=== PATIENT | female | born 1935 | race Caucasian/White ===

== ENCOUNTER 2016-09-05 11:00 | Outpatient (RCR) ==
--- NOTE | 2016-08-14 09:11 | RS.OPPTEV2 ---
Date of Note: 08/12/16 Visit #: 1 Date of Evaluation: 08/12/16 Payer Source: MEDICARE Date of Onset/Injury/Change in Status: 05/11/16 Treatment Diagnosis: Ataxia ,Gait abnormality, decreased balance History of Condition/Mechanism of Injury:: Patient reports difficulty with walking because of having tremors. States her legs have felt progressively weaker. Prior Level of Function.....Patient was independent with: ADL's, Self Care, Ambulation/Mobility, Community Integration/Access Functional Limitations: ADL's, Carrying, Standing, Bending, Squatting, Ambulation, Community Access/Integration Current Subjective/complaints:: Patient reports being unsteady when she walks. States she has tremors, which are worse on some days than others. States she uses a cane when walking out to get her mail or other long distances. States she should probably use it anytime she walks. States she is very cautious when she walks, because she is afraid of falling. She denies dizziness. Also denies tingling or numbness in the LE's. Reports difficulty at times getting out of bed or out of a chair. States she cannot stand up from a sitting position without using her arms. States her knees are beginning to hurt because she puts so much pressure on them when she goes to stand up. Reports in caodaism, she has to pull herself up by holding onto the pew in front of her. Medical History Medical History: Hypertension, Arthritis Medical History Comments:: Tremors Surgical History: Lumbar Spine Smoking Status: Never smoker Hx Home Medications: Zestril, prilosec, Toprol, Topamax, Mysoline, Imdur Patient's Goals: Her goal is to gain improved balance and strength in her legs so she will be less likely to fall when walking. Pain Assessment - Pain Description Pain Location: knee pain bilaterally Current Pain Intensity: mild Functional Outcome Measure Tinetti: 15 (15=46.5% impairment) - G Codes & Severity Modifier G Codes & Modifier: Mobility current CK. Mobility goal CI Source of G Code score: Tinetti Assessment Observation - Observation Inspection: Patient presents to department ambulating alone, without an assistive device. Posture: Forward Head, Rounded Shoulders, Decreased Lumbar Lordosis Gait - Gait Pattern Gait Comments: Patient ambulates without an assistive device. She demonstrates a short stride, and very narrow base of support. Stride length is symmetrical. She demonstrates decreased bilateral knee and hip flexion during swing phase. With distractions, patient's gait speed slows down and she has loss of balance with head turning. General Range of Motion: Bilateral LE AROM is WFL's. Muscle Strength: Hip strength generally 4-/5. Quads 4/5, HS 4+/5, ankles 4/5. Sensation - Sensation Right Lower Extremity: Intact/Normal Left Lower Extremity: Intact/Normal Balance - Sitting Balance Static Sitting Balance: Good Dynamic Sitting Balance: Good - Standing Balance Static Standing Balance: Fair (+) Dynamic Standing Balance: Fair - Comments Balance Assessment Comments: Demonstrates decreased balance reactions when center of gravity is displaced posteriorly in standing. Also stepping backward from neutral standing position causes her to have a loss of balance. Demonstrates no sway or loss of balance with eyes closed in standing. Coordination - Tests Bilateral Heel to Baker: Mild Deviation Toe Tapping: Mild Deviation (more difficulty with increased speed) Interventions - Exercise/Activities/Manual Therapy Exercises/Activities: NA Manual Therapy: NA HOME EXERCISE PROGRAM: None given at this time - Charges Total Direct Minutes: 55 mins Total Treatment Time: 55 mins Procedures billed for this date of service:: AUBREE medium complexity Assessment Assessment: Patient presents to therapy with a diagnosis of ataxia. She demonstrates to be at a high risk for falls per Tinetti Assessment. She presents with general weakness in the LE's and decreased dynamic standing balance. She demonstrates potential to benefit from strengthening and balance exercises and activities to improve her overall safety and decrease her risk for falls. Rehab Potential: Good Short Term Goals Goal #1: Patient independent in basic HEP. Goal to be met by: 08/27/16 Goal #2: Pt to consistently demonstrate a good base of support with ambulation. Goal to be met by: 08/27/16 Goal #3: Dynamic standing balance improved to Fair +. Goal to be met by: 08/27/16 Goal #4: Bilateral hip strength 4/5 throughout. Goal to be met by: 08/27/16 Custodial Goals Goal #1: Patient knows HEP and to cont. ex's to maintain level of function at D/ C. Goal to be met by: 09/22/16 Goal #2: Score on Tinetti Assessment improved to 21/28. Goal to be met by: 09/22/16 Goal #3: Patient to amb. with AAD with good safety community distances. Goal to be met by: 09/22/16 Goal #4: Pt to report improved confidence in balance and safety with mobility. Goal to be met by: 09/22/16 Plan - Treatment to be Provided Procedures: Therapeutic Exercises, Therapeutic Activity, Gait Training, Neuromuscular Rehab, Patient Education Modalities: No Modalities - Treatment Plan Frequency: 2-3 X week Duration: 4 weeks ORDER # VISITS AND/OR THROUGH DATE: 09/22/16 - Treatment Code (1) Gait abnormality Comments: R26.9 (2) Weakness of both lower extremities Comments: R29.8980 (3) Continuous tremor Comments: G25.2
--- NOTE | 2016-08-14 11:43 | RS.OPPTDN ---
Subjective Date of Note: 08/14/16 Visit #: 2 Date of Evaluation: 08/12/16 Payer Source: MEDICARE Treatment Diagnosis: Ataxia ,Gait abnormality, decreased balance Current Subjective/complaints:: Patient reports she want to get stronger and have better balance to increase her ability to walk and perform daily activities safely. Pain Assessment - Pain Description Pain Location: knee pain bilaterally Current Pain Intensity: mild Interventions - Exercise/Activities/Manual Therapy Exercises/Activities: [id number]. Mat exercise of SAQ 3# 2s/10reps and hook-lying LE lifts 3#, 2s/10reps. 1 1/2# for SLR 3s/10reps. Hip abd 10reps each. Isometric hip add 3s/10reps and isometric hip flexion 4s/5reps. Green theraband for ham curls and hip abduction, 2s/10reps each. All exercises performed bilaterally. In sitting, red theraband for ham curl and 3# for LAQ, 2s/10reps each. Alt hip flexion and wand for overhead shoulder flexion 2s/10reps each. NEURO 10mins Standing at hand rail with assist at gait belt patient performs marching and toe touches to erazo on wall. Side stepping, marching, and backwards walking with use of handrail and FLAME CUTTING MACHINE OPERATOR HELPER. Sit to stand multiple reps. Walked with patient to car, v.c. to increase step height and length. Also safety precautions for going down ramp. Total minutes of Exercise: EX 35mins, NEURO 10mins Manual Therapy: NA HOME EXERCISE PROGRAM: Isometric hip add, SLR, alt hip flexion. - Charges Total Direct Minutes: 45mins Total Treatment Time: 50mins Procedures billed for this date of service:: EX2, NEURO Assessment: Patient motivated to progress. She will need to gain strength and balance to perform her daily activities as she lives alone. Patient Education: Home Exercise Program, Home Safety, Activity Modification Patient demonstrates compliance with HEP?: Yes Short Term Goals Goal #1: Patient independent in basic HEP. Goal to be met by: 08/27/16 Progress towards Goal:: Progressing Goal #2: Pt to consistently demonstrate a good base of support with ambulation. Goal to be met by: 08/27/16 Progress towards Goal:: Progressing Goal #3: Dynamic standing balance improved to Fair +. Goal to be met by: 08/27/16 Goal #4: Bilateral hip strength 4/5 throughout. Goal to be met by: 08/27/16 Paper Machine Back Tender Goals Goal #1: Patient knows HEP and to cont. ex's to maintain level of function at D/ C. Goal to be met by: 09/22/16 Goal #2: Score on Tinetti Assessment improved to 21/28. Goal to be met by: 09/22/16 Goal #3: Patient to amb. with AAD with good safety community distances. Goal to be met by: 09/22/16 Goal #4: Pt to report improved confidence in balance and safety with mobility. Goal to be met by: 09/22/16 Plan PLAN OF CARE EXPIRES ON:: 09/22/16 ORDER # VISITS AND/OR THROUGH DATE: 09/22/16 PLAN: Continue Plan of Care (Continue and progress strengthening and balance for increased safety and functional activity level.)
--- NOTE | 2016-08-18 11:03 | RS.OPPTDN ---
Subjective Date of Note: 08/18/16 Visit #: 3 Date of Evaluation: 08/12/16 Payer Source: MEDICARE Treatment Diagnosis: Ataxia ,Gait abnormality, decreased balance Current Subjective/complaints:: Patient reports no new complaints. No recent falls. Pain Assessment - Pain Description Pain Location: knee pain bilaterally Current Pain Intensity: mild Interventions - Exercise/Activities/Manual Therapy Exercises/Activities: [id number]. Mat exercise of SAQ 3# 2s/10reps and hook-lying LE lifts 3#, 2s/10reps. 1 1/2# for SLR 3s/10reps. Hip abd 10reps each. Isometric hip add 3s/10reps and isometric hip flexion 4s/5reps. Green theraband for ham curls and hip abduction, 2s/10reps each. All exercises performed bilaterally. In sitting, red theraband for ham curl and 3# for LAQ, 2s/10reps each. Alt hip flexion and wand for overhead shoulder flexion 2s/10reps each. Standing at hand rail with assist at gait belt patient performs hip flexion, extension, abduction, and mini squats. Patient able to perform sit to stand without using arms after rocking for momentum. Manual Therapy: NA HOME EXERCISE PROGRAM: Isometric hip add, SLR, alt hip flexion. - Charges Total Direct Minutes: 36 mins Total Treatment Time: 36 mins Procedures billed for this date of service:: EX2 Assessment: Patient tolerates all exercises well. She is highly motivated to gain increased strength and safety with mobility. Short Term Goals Goal #1: Patient independent in basic HEP. Goal to be met by: 08/27/16 Progress towards Goal:: Progressing Goal #2: Pt to consistently demonstrate a good base of support with ambulation. Goal to be met by: 08/27/16 Progress towards Goal:: Progressing Goal #3: Dynamic standing balance improved to Fair +. Goal to be met by: 08/27/16 Goal #4: Bilateral hip strength 4/5 throughout. Goal to be met by: 08/27/16 Detention Goals Goal #1: Patient knows HEP and to cont. ex's to maintain level of function at D/ C. Goal to be met by: 09/22/16 Goal #2: Score on Tinetti Assessment improved to 21/28. Goal to be met by: 09/22/16 Goal #3: Patient to amb. with AAD with good safety community distances. Goal to be met by: 09/22/16 Goal #4: Pt to report improved confidence in balance and safety with mobility. Goal to be met by: 09/22/16 Plan PLAN OF CARE EXPIRES ON:: 09/22/16 ORDER # VISITS AND/OR THROUGH DATE: 09/22/16 PLAN: Continue Plan of Care
--- NOTE | 2016-08-20 14:15 | RS.OPPTDN ---
Subjective Date of Note: 08/20/16 Visit #: 4 Date of Evaluation: 08/12/16 Payer Source: MEDICARE Treatment Diagnosis: Ataxia ,Gait abnormality, decreased balance Current Subjective/complaints:: Patient reports she is pleased with her ability to perform sit to stand from average height surface without difficulty. Pain Assessment - Pain Description Pain Location: knee pain bilaterally Current Pain Intensity: mild Interventions - Exercise/Activities/Manual Therapy Exercises/Activities: [id number]. Mat exercise of SAQ 3# 2s/10reps and hook-lying LE lifts 3#, 2s/10reps. 1 1/2# for SLR 3s/10reps. Hip abd 10reps each. Isometric hip add 3s/10reps and isometric hip flexion 4s/5reps. Green theraband for ham curls and hip abduction, 2s/10reps each. Red theraband for ankle df, 2s/ 10reps each. All exercises performed bilaterally. In sitting, red theraband for ham curl and 3# for LAQ, 2s/10reps each. Red theraband for scapular retraction, 2s/10reps. Leg press 30#, 2s/15reps. Total minutes of Exercise: 35mins Manual Therapy: NA HOME EXERCISE PROGRAM: Isometric hip add, SLR, alt hip flexion. - Charges Total Direct Minutes: 35mins Total Treatment Time: 35mins Procedures billed for this date of service:: EX2 Assessment: Patient progressing with strength and with sit to stand transfers. Patient Education: Home Exercise Program, Home Safety Short Term Goals Goal #1: Patient independent in basic HEP. Goal to be met by: 08/27/16 Progress towards Goal:: Progressing Goal #2: Pt to consistently demonstrate a good base of support with ambulation. Goal to be met by: 08/27/16 Progress towards Goal:: Progressing Goal #3: Dynamic standing balance improved to Fair +. Goal to be met by: 08/27/16 Goal #4: Bilateral hip strength 4/5 throughout. Goal to be met by: 08/27/16 Security Controls Assessor Goals Goal #1: Patient knows HEP and to cont. ex's to maintain level of function at D/ C. Goal to be met by: 09/22/16 Goal #2: Score on Tinetti Assessment improved to 21/28. Goal to be met by: 09/22/16 Goal #3: Patient to amb. with AAD with good safety community distances. Goal to be met by: 09/22/16 Goal #4: Pt to report improved confidence in balance and safety with mobility. Goal to be met by: 09/22/16 Plan PLAN OF CARE EXPIRES ON:: 09/22/16 ORDER # VISITS AND/OR THROUGH DATE: 09/22/16 PLAN: Continue Plan of Care
--- NOTE | 2016-08-22 14:44 | RS.OPPTDN ---
Subjective Date of Note: 08/22/16 Visit #: 5 Date of Evaluation: 08/12/16 Payer Source: MEDICARE Treatment Diagnosis: Ataxia ,Gait abnormality, decreased balance Current Subjective/complaints:: Patient reports she is walking better and is doing better with sit to stand. Pain Assessment - Pain Description Pain Location: knee pain bilaterally Current Pain Intensity: mild Interventions - Exercise/Activities/Manual Therapy Exercises/Activities: [id number]. Mat exercise of SAQ 3# 2s/10reps and hook-lying LE lifts 3#, 2s/10reps. 1 1/2# for SLR 3s/10reps. Isometric hip add 3s/10reps and isometric hip flexion 4s/5reps. Green theraband for ham curls and hip abduction, 2s/10reps each. Red theraband for ankle df, 2s/10reps each. All exercises performed bilaterally. In sitting, red theraband for ham curl and 3# for LAQ, 2s/10reps each. Red theraband for scapular retraction, 2s/10reps. Standing at handrail, mini-squats, toe-ups, alt hip abd, and marching. Leg press 30#, 3s/20reps. Total minutes of Exercise: 40mins Manual Therapy: NA HOME EXERCISE PROGRAM: Isometric hip add, SLR, alt hip flexion. - Charges Total Direct Minutes: 40mins Total Treatment Time: 45mins Procedures billed for this date of service:: EX3 Assessment: Patient progressing with strength and ambulation which will improve her safety and functional activity level. Patient Education: Home Exercise Program, Home Safety, Activity Modification Patient demonstrates compliance with HEP?: Yes Short Term Goals Goal #1: Patient independent in basic HEP. Goal to be met by: 08/27/16 Progress towards Goal:: Progressing Goal #2: Pt to consistently demonstrate a good base of support with ambulation. Goal to be met by: 08/27/16 Progress towards Goal:: Progressing Goal #3: Dynamic standing balance improved to Fair +. Goal to be met by: 08/27/16 Progress towards Goal:: Progressing Goal #4: Bilateral hip strength 4/5 throughout. Goal to be met by: 08/27/16 Progress towards Goal:: Progressing Residential Goals Goal #1: Patient knows HEP and to cont. ex's to maintain level of function at D/ C. Goal to be met by: 09/22/16 Goal #2: Score on Tinetti Assessment improved to 21/28. Goal to be met by: 09/22/16 Goal #3: Patient to amb. with AAD with good safety community distances. Goal to be met by: 09/22/16 Progress towards goal: Progressing Goal #4: Pt to report improved confidence in balance and safety with mobility. Goal to be met by: 09/22/16 Progress towards goal: Progressing Plan PLAN OF CARE EXPIRES ON:: 09/22/16 ORDER # VISITS AND/OR THROUGH DATE: 09/22/16 PLAN: Continue Plan of Care
--- NOTE | 2016-08-26 15:20 | RS.OPPTDN ---
Subjective Date of Note: 08/26/16 Visit #: 6 Date of Evaluation: 08/12/16 Payer Source: MEDICARE Treatment Diagnosis: Ataxia ,Gait abnormality, decreased balance Current Subjective/complaints:: Patient reports family has noticed she is walking better. States she is picking her feet up better. Pain Assessment - Pain Description Pain Location: knee pain bilaterally Current Pain Intensity: mild Interventions - Exercise/Activities/Manual Therapy Exercises/Activities: [id number]. Mat exercise of SAQ increased to 4# 2s/10reps and hook-lying LE lifts 4#, 2s/10reps. 2# for SLR 3s/10reps. Isometric hip add 3s/10reps and isometric hip flexion 4s/5reps. Green theraband for ham curls and hip abduction, 2s/10reps each. Increased to green theraband for ankle df, 2s/ 10reps each. Isometric trunk rotation, multiple reps. All exercises performed bilaterally. In sitting, green theraband and scapular retraction, 2s/10reps. Uni -lateral standing on medium resistance foam, 3x each LE. Standing at handrail, mini-squats, toe-ups, and marching. Leg press increased to 45#, 4s/15reps. Walked with patient down ramp to car in parking lot. Total minutes of Exercise: 40mins Manual Therapy: NA HOME EXERCISE PROGRAM: Isometric hip add, SLR, alt hip flexion. - Charges Total Direct Minutes: 40mins Total Treatment Time: 45mins Procedures billed for this date of service:: EX3 Assessment: Patient progressing well with strengthening and with walking. Short Term Goals Goal #1: Patient independent in basic HEP. Goal to be met by: 08/27/16 (100%) Progress towards Goal:: Met Goal #2: Pt to consistently demonstrate a good base of support with ambulation. Goal to be met by: 08/27/16 (50%) Progress towards Goal:: Progressing Goal #3: Dynamic standing balance improved to Fair +. Goal to be met by: 08/27/16 (75%) Progress towards Goal:: Progressing Goal #4: Bilateral hip strength 4/5 throughout. Goal to be met by: 08/27/16 Progress towards Goal:: Progressing Usp Goals Goal #1: Patient knows HEP and to cont. ex's to maintain level of function at D/ C. Goal to be met by: 09/22/16 Goal #2: Score on Tinetti Assessment improved to 21/28. Goal to be met by: 09/22/16 Goal #3: Patient to amb. with AAD with good safety community distances. Goal to be met by: 09/22/16 Progress towards goal: Progressing Goal #4: Pt to report improved confidence in balance and safety with mobility. Goal to be met by: 09/22/16 Progress towards goal: Progressing Plan PLAN OF CARE EXPIRES ON:: 09/22/16 ORDER # VISITS AND/OR THROUGH DATE: 09/22/16 PLAN: Continue Plan of Care (Progress with strengthening to increase safety with ambulation and increase functional activity level.)
--- NOTE | 2016-08-27 15:18 | RS.OPPTDN ---
Subjective Date of Note: 08/27/16 Visit #: 7 Date of Evaluation: 08/12/16 Payer Source: MEDICARE Treatment Diagnosis: Ataxia ,Gait abnormality, decreased balance Current Subjective/complaints:: Patient reports conitnued improvement in LE strength and safe ambulation. Pain Assessment - Pain Description Pain Location: knee pain bilaterally Current Pain Intensity: mild Interventions - Exercise/Activities/Manual Therapy Exercises/Activities: [id number]. Mat exercise of SAQ 4# 2s/10reps and hook-lying LE lifts 4#, 2s/10reps. 2# for SLR 3s/10reps. Isometric hip add 3s/10reps and isometric hip flexion 4s/5reps. Green theraband for ham curls and hip abduction , 3s/10reps each. Green theraband for ankle df, 2s/10reps each. Isometric trunk rotation, multiple reps. All exercises performed bilaterally. In sitting, green theraband for scapular retraction, 2s/10reps and ham curl 3s/10reps. Uni- lateral standing on medium resistance foam, 3x each LE. Standing at handrail, mini-squats, toe-ups, marching and alt hip abduction, 10reps each. Leg press 45# , 3s/30reps. Walked again with patient down ramp to car in parking lot. Total minutes of Exercise: 42mins Manual Therapy: NA HOME EXERCISE PROGRAM: Isometric hip add, SLR, alt hip flexion. - Charges Total Direct Minutes: 42mins Total Treatment Time: 45mins Procedures billed for this date of service:: EX3 Assessment: Patient progressing well with exercise. Patient Education: Home Exercise Program, Home Safety, Activity Modification Comments: Patient given copy of standing exercises for HEP. Patient demonstrates compliance with HEP?: Yes Short Term Goals Goal #1: Patient independent in basic HEP. Goal to be met by: 08/27/16 (100%) Progress towards Goal:: Met Goal #2: Pt to consistently demonstrate a good base of support with ambulation. Goal to be met by: 08/27/16 (50%) Progress towards Goal:: Progressing Goal #3: Dynamic standing balance improved to Fair +. Goal to be met by: 08/27/16 (75%) Progress towards Goal:: Progressing Goal #4: Bilateral hip strength 4/5 throughout. Goal to be met by: 08/27/16 Progress towards Goal:: Progressing Senior Infrastructure Engineer Goals Goal #1: Patient knows HEP and to cont. ex's to maintain level of function at D/ C. Goal to be met by: 09/22/16 Goal #2: Score on Tinetti Assessment improved to 21/28. Goal to be met by: 09/22/16 Goal #3: Patient to amb. with AAD with good safety community distances. Goal to be met by: 09/22/16 Progress towards goal: Progressing Goal #4: Pt to report improved confidence in balance and safety with mobility. Goal to be met by: 09/22/16 Progress towards goal: Progressing Plan PLAN OF CARE EXPIRES ON:: 09/22/16 ORDER # VISITS AND/OR THROUGH DATE: 09/22/16 PLAN: Continue Plan of Care
--- NOTE | 2016-08-29 12:10 | RS.OPPTDN ---
Subjective Date of Note: 08/29/16 Visit #: 8 Date of Evaluation: 08/12/16 Payer Source: MEDICARE Treatment Diagnosis: Ataxia ,Gait abnormality, decreased balance Current Subjective/complaints:: Patient reports she is stronger each day and feels more secure with light daily activities in her home. Paitnet states she needs to be able to do more moderate daily activities and needs a stronger gait because she lives alone. Pain Assessment - Pain Description Pain Location: knee pain bilaterally Current Pain Intensity: mild Interventions - Exercise/Activities/Manual Therapy Exercises/Activities: [id number]. Mat exercise of SAQ 4# 2s/10reps and hook-lying LE lifts 4#, 2s/10reps. 2# for SLR 3s/10reps. Isometric hip add 3s/10reps and isometric hip flexion 4s/5reps. Green theraband for ham curls and hip abduction , 3s/10reps each. Green theraband for ankle df, 2s/10reps each. Isometric trunk rotation, multiple reps. All exercises performed bilaterally. In sitting, red theraband for scapular retraction, 3s/10reps and ham curl 3s/10reps. Leg press increased to 60#, 3s/20reps. Patient assisted to car in parking lot with SBA to CGA. Total minutes of Exercise: 35mins Manual Therapy: NA HOME EXERCISE PROGRAM: Isometric hip add, SLR, alt hip flexion. Standing at kitchen counter for toe-ups, mini-squats, marching, and alt hip abd. - Charges Total Direct Minutes: 35mins Total Treatment Time: 40mins Procedures billed for this date of service:: EX2 Assessment: Patient continues to report progress with safe, functional mobility. She needs to progress to be able to perform more moderate daily activities and have a consistently safe gait pattern. Patient Education: Home Exercise Program, Home Safety Patient demonstrates compliance with HEP?: Yes Short Term Goals Goal #1: Patient independent in basic HEP. Goal to be met by: 08/27/16 (100%) Progress towards Goal:: Met Goal #2: Pt to consistently demonstrate a good base of support with ambulation. Goal to be met by: 08/27/16 (50%) Progress towards Goal:: Progressing Goal #3: Dynamic standing balance improved to Fair +. Goal to be met by: 08/27/16 (75%) Progress towards Goal:: Progressing Goal #4: Bilateral hip strength 4/5 throughout. Goal to be met by: 08/27/16 Progress towards Goal:: Progressing Retirement Goals Goal #1: Patient knows HEP and to cont. ex's to maintain level of function at D/ C. Goal to be met by: 09/22/16 Goal #2: Score on Tinetti Assessment improved to 21/28. Goal to be met by: 09/22/16 Goal #3: Patient to amb. with AAD with good safety community distances. Goal to be met by: 09/22/16 Progress towards goal: Progressing Goal #4: Pt to report improved confidence in balance and safety with mobility. Goal to be met by: 09/22/16 Progress towards goal: Progressing Plan PLAN OF CARE EXPIRES ON:: 09/22/16 ORDER # VISITS AND/OR THROUGH DATE: 09/22/16 PLAN: Continue Plan of Care
--- NOTE | 2016-09-01 13:23 | RS.OPPTDN ---
Subjective Date of Note: 09/01/16 Visit #: 9 Date of Evaluation: 08/12/16 Payer Source: MEDICARE Treatment Diagnosis: Ataxia ,Gait abnormality, decreased balance Current Subjective/complaints:: Patient reports doing better with walking short distances in community. States she is working on her HEP. Pain Assessment - Pain Description Pain Location: knee pain bilaterally Current Pain Intensity: mild Interventions - Exercise/Activities/Manual Therapy Exercises/Activities: [id number]. Mat exercise of SAQ 4# 2s/10reps and hook-lying LE lifts 4#, 2s/10reps. 2# for SLR 3s/10reps. Isometric hip add 3s/10reps and isometric hip flexion 4s/5reps. Green theraband for ham curls and hip abduction , 3s/10reps each. Isometric trunk rotation, multiple reps. All exercises performed bilaterally. In sitting, red theraband for scapular retraction, 3s/ 10reps and ham curl 3s/10reps. Standing at handrail for toe-ups, mini-squats, marching, and alt hip abduction. Leg press 60#, 3s/20reps. Patient assisted to car in parking lot with SBA to CGA. Total minutes of Exercise: 45mins Manual Therapy: NA HOME EXERCISE PROGRAM: Isometric hip add, SLR, alt hip flexion. Standing at kitchen counter for toe-ups, mini-squats, marching, and alt hip abd. - Charges Total Direct Minutes: 45mins Total Treatment Time: 45mins Procedures billed for this date of service:: EX3 Assessment: Patient reporting progress with functional ambulation short distances in the community. Patient Education: Home Exercise Program, Home Safety, Activity Modification Patient demonstrates compliance with HEP?: Yes Short Term Goals Goal #1: Patient independent in basic HEP. Goal to be met by: 08/27/16 (100%) Progress towards Goal:: Met Goal #2: Pt to consistently demonstrate a good base of support with ambulation. Goal to be met by: 08/27/16 (50%) Progress towards Goal:: Progressing Goal #3: Dynamic standing balance improved to Fair +. Goal to be met by: 08/27/16 (75%) Progress towards Goal:: Progressing Goal #4: Bilateral hip strength 4/5 throughout. Goal to be met by: 08/27/16 Progress towards Goal:: Progressing Organizational Research Consultant Goals Goal #1: Patient knows HEP and to cont. ex's to maintain level of function at D/ C. Goal to be met by: 09/22/16 Goal #2: Score on Tinetti Assessment improved to 21/28. Goal to be met by: 09/22/16 Goal #3: Patient to amb. with AAD with good safety community distances. Goal to be met by: 09/22/16 Progress towards goal: Progressing Goal #4: Pt to report improved confidence in balance and safety with mobility. Goal to be met by: 09/22/16 Progress towards goal: Progressing Plan PLAN OF CARE EXPIRES ON:: 09/22/16 ORDER # VISITS AND/OR THROUGH DATE: 09/22/16 PLAN: Continue Plan of Care (Continue strengthening and reassess FOM next session.)
--- NOTE | 2016-09-03 14:26 | RS.OPPTDN ---
Subjective Date of Note: 09/03/16 Visit #: 10 Date of Evaluation: 08/12/16 Payer Source: MEDICARE Treatment Diagnosis: Ataxia ,Gait abnormality, decreased balance Current Subjective/complaints:: Reports she is pleased with her progress. States her gait around her home has improved. States she would like to be able to get back to walking outside for exercise as before. Pain Assessment - Pain Description Pain Location: knee pain bilaterally Current Pain Intensity: mild Interventions - Exercise/Activities/Manual Therapy Exercises/Activities: [id number]. Mat exercise of SAQ 4# 2s/10reps and hook-lying LE lifts 4#, 2s/10reps. 2# for SLR 3s/10reps. Isometric hip add 3s/10reps and isometric hip flexion 4s/5reps. Green theraband for ham curls and hip abduction , 3s/10reps each. Isometric trunk rotation, multiple reps. All exercises performed bilaterally. In sitting, red theraband for scapular retraction, 3s/ 10reps and ham curl 3s/10reps. Standing at handrail for toe-ups, mini-squats, marching, and alt hip abduction. Uni-lateral standing alt sides, multiple reps. Leg press in5#creased to #, 3s/20reps. Ended with stationary bike x3mins. Total minutes of Exercise: 45mins Manual Therapy: NA HOME EXERCISE PROGRAM: Isometric hip add, SLR, alt hip flexion. Standing at kitchen counter for toe-ups, mini-squats, marching, and alt hip abd. - Objective Findings Observations,measurements,etc.: Demos independent sit to stand without use of UE 's. Demos improvement in gait pattern. Tinetti score improved to 19/28 or 32.1% deficit (was 15/28 or 46.5% on Eval). - Charges Total Direct Minutes: 45mins Total Treatment Time: 50mins Procedures billed for this date of service:: EX3 Assessment: Patient progressing with strengtheing and demos improvement on Tinetti assessment. Patient will benefit from completing sessions of POC to improve strength, balance and independence with functional activities. Patient Education: Home Exercise Program, Home Safety, Activity Modification Patient demonstrates compliance with HEP?: Yes Short Term Goals Goal #1: Patient independent in basic HEP. Goal to be met by: 08/27/16 (100%) Progress towards Goal:: Met Goal #2: Pt to consistently demonstrate a good base of support with ambulation. Goal to be met by: 08/27/16 (80%) Progress towards Goal:: Progressing Goal #3: Dynamic standing balance improved to Fair +. Goal to be met by: 08/27/16 (100%) Progress towards Goal:: Met Goal #4: Bilateral hip strength 4/5 throughout. Goal to be met by: 08/27/16 (100%) Progress towards Goal:: Met Legal Billing Coordinator Goals Goal #1: Patient knows HEP and to cont. ex's to maintain level of function at D/ C. Goal to be met by: 09/22/16 Progress towards goal: Progressing Goal #2: Score on Tinetti Assessment improved to 21/28. Goal to be met by: 09/22/16 (70%) Progress towards goal: Progressing Goal #3: Patient to amb. with AAD with good safety community distances. Goal to be met by: 09/22/16 (50%) Progress towards goal: Progressing Goal #4: Pt to report improved confidence in balance and safety with mobility. Goal to be met by: 09/22/16 (50%) Progress towards goal: Progressing Plan PLAN OF CARE EXPIRES ON:: 09/22/16 ORDER # VISITS AND/OR THROUGH DATE: 09/22/16 PLAN: Continue Plan of Care
--- NOTE | 2016-09-03 15:42 | RS.PTSUM ---
Progress Note/Summary Date of Note: 09/03/16 Date of Evaluation: 08/12/16 Number of Visits: 10 Reporting Period for this Progress Note: 08/12/16 through 09/03/16 Current Complaints/Gains: Patient reports improved balance and strength since starting therapy. Objective Measurements/Presentation: Ms. Dutta demonstrates [place] with sit to stand without use of UE to push from chair. Demonstrates improved foot clearance and gait pattern. Did not demonstrate sway from path during today's session. G Codes: Mobility current CJ. Mobility goal CI Source of G Code Score: Tinetti Assessment =32%. Score at initial evaluation was 15/28 or 46.5 % impairment - Short Term Goals Goal #1: Patient independent in basic HEP. Goal to be met by: 08/27/16 (100%) Progress towards Goal:: Met Goal #2: Pt to consistently demonstrate a good base of support with ambulation. Goal to be met by: 08/27/16 (80%) Progress towards Goal:: Progressing Goal #3: Dynamic standing balance improved to Fair +. Goal to be met by: 08/27/16 (100%) Progress towards Goal:: Met Goal #4: Bilateral hip strength 4/5 throughout. Goal to be met by: 08/27/16 (100%) Progress towards Goal:: Met - Retirement Goals Goal #1: Patient knows HEP and to cont. ex's to maintain level of function at D/ C. Goal to be met by: 09/22/16 Progress towards goal: Progressing Goal #2: Score on Tinetti Assessment improved to 21/28. Goal to be met by: 09/22/16 (70%) Progress towards goal: Progressing Goal #3: Patient to amb. with AAD with good safety community distances. Goal to be met by: 09/22/16 (50%) Progress towards goal: Progressing Goal #4: Pt to report improved confidence in balance and safety with mobility. Goal to be met by: 09/22/16 (50%) Progress towards goal: Progressing - Assessment Assessment of Improvement/Progress: Patient exhibits improved ability with transfers and improved safety with ambulation. She demonstrates potential to benefit from one more week of therapy for progressed strengthening and safety instruction with mobility to reduce risk for falls. Summary: Patient has made progress towards goals., Patient demonstrates potential to gain increased function with therapy, Maximum potential has yet to be attained. - Plan Plan: Continue Plan of Care PLAN OF CARE EXPIRES ON:: 09/22/16 ORDER # VISITS AND/OR THROUGH DATE: 09/22/16
--- NOTE | 2016-09-05 12:00 | RS.OPPTDN ---
Subjective Date of Note: 09/05/16 Visit #: 11 Date of Evaluation: 08/12/16 Payer Source: MEDICARE Treatment Diagnosis: Ataxia ,Gait abnormality, decreased balance Current Subjective/complaints:: Patient reports she continues to increase community activities. Reports she is stronger and feels more secure when walking. Pain Assessment - Pain Description Pain Location: knee pain bilaterally Current Pain Intensity: mild Interventions - Exercise/Activities/Manual Therapy Exercises/Activities: [id number]. Mat exercise of SAQ 4# 2s/10reps and hook-lying LE lifts 4#, 2s/10reps. 2# for SLR and hip abduction, 2s/10reps each. Isometric hip add 3s/10reps and isometric hip flexion 4s/5reps. Green theraband for ham curls and hip abduction, 2s/10reps each. Isometric trunk rotation, multiple reps. All exercises performed bilaterally. In sitting, green theraband for scapular retraction, 3s/10reps. Standing at handrail for toe-ups, mini-squats, marching, and alt hip abduction. Uni-lateral standing on green therapy foam alt sides, multiple reps. Side-stepping and [place] walking at handrail. Leg press increased to 75#, 2s/20reps. Ended with stationary bike x3mins. Total minutes of Exercise: 45mins Manual Therapy: NA HOME EXERCISE PROGRAM: Isometric hip add, SLR, alt hip flexion. Standing at kitchen counter for toe-ups, mini-squats, marching, and alt hip abd. - Charges Total Direct Minutes: 45mins Total Treatment Time: 45mins Procedures billed for this date of service:: EX3 Assessment: Patient progressing with strengthening exercise and mobility in community. Patient Education: Home Exercise Program Patient demonstrates compliance with HEP?: Yes Short Term Goals Goal #1: Patient independent in basic HEP. Goal to be met by: 08/27/16 (100%) Progress towards Goal:: Met Goal #2: Pt to consistently demonstrate a good base of support with ambulation. Goal to be met by: 08/27/16 (100%) Progress towards Goal:: Met Goal #3: Dynamic standing balance improved to Fair +. Goal to be met by: 08/27/16 (100%) Progress towards Goal:: Met Goal #4: Bilateral hip strength 4/5 throughout. Goal to be met by: 08/27/16 (100%) Progress towards Goal:: Met Casing Finisher And Stuffer Goals Goal #1: Patient knows HEP and to cont. ex's to maintain level of function at D/ C. Goal to be met by: 09/22/16 Progress towards goal: Progressing Goal #2: Score on Tinetti Assessment improved to 21/28. Goal to be met by: 09/22/16 (70%) Progress towards goal: Progressing Goal #3: Patient to amb. with AAD with good safety community distances. Goal to be met by: 09/22/16 (80%) Progress towards goal: Progressing Goal #4: Pt to report improved confidence in balance and safety with mobility. Goal to be met by: 09/22/16 (100%) Progress towards goal: Met Plan PLAN OF CARE EXPIRES ON:: 09/22/16 ORDER # VISITS AND/OR THROUGH DATE: 09/22/16 PLAN: Continue Plan of Care
== END 2016-09-07 ==
PROVIDERS: ATTEND Psychiatry & Neurology Neurology
DX: R27.0 Ataxia, unspecified (principal)

== ENCOUNTER 2016-09-10 13:33 | Outpatient (RCR) ==
--- NOTE | 2016-09-10 16:33 | RS.OPPTDN ---
Subjective Date of Note: 09/10/16 Visit #: 12 Date of Evaluation: 08/12/16 Payer Source: MEDICARE Treatment Diagnosis: Ataxia ,Gait abnormality, decreased balance Pain Assessment - Pain Description Pain Location: knee pain bilaterally Current Pain Intensity: mild Interventions - Exercise/Activities/Manual Therapy Exercises/Activities: [id number]. Mat exercise of SAQ 4# 2s/10reps and hook-lying LE lifts 4#, 2s/10reps. 2# for SLR and hip abduction, 2s/10reps each. Isometric hip add 3s/10reps and isometric hip flexion 4s/5reps. Blue theraband for ham curls and hip abduction, 2s/10reps each. Isometric trunk rotation, multiple reps. All exercises performed bilaterally. In sitting, blue theraband for scapular retraction, 3s/10reps. Standing at handrail for toe-ups, mini-squats, marching, and alt hip abduction. Side-stepping and [place] walking at handrail. Leg press 75#, 2s/20reps. Reveiwed all safety, FOM, and HEP. Total minutes of Exercise: 45mins Manual Therapy: NA HOME EXERCISE PROGRAM: Isometric hip add, SLR, alt hip flexion. Standing at kitchen counter for toe-ups, mini-squats, marching, and alt hip abd. - Objective Findings Observations,measurements,etc.: Tinetti remains at 19/28 or 32% deficit - Charges Total Direct Minutes: 45mins Total Treatment Time: 45mins Procedures billed for this date of service:: EX3 Assessment: Patient has progressed well and benefitted from treatment. She is pleased with improvement in strength and balance. States she has increased confidence with amb at home and in community. Will continue HEP following discharge. Patient Education: Body/Joint mechanics, Home Exercise Program, Home Safety, Activity Modification, Education of Plan of Care Patient demonstrates compliance with HEP?: Yes Short Term Goals Goal #1: Patient independent in basic HEP. Goal to be met by: 08/27/16 (100%) Progress towards Goal:: Met Goal #2: Pt to consistently demonstrate a good base of support with ambulation. Goal to be met by: 08/27/16 (100%) Progress towards Goal:: Met Goal #3: Dynamic standing balance improved to Fair +. Goal to be met by: 08/27/16 (100%) Progress towards Goal:: Met Goal #4: Bilateral hip strength 4/5 throughout. Goal to be met by: 08/27/16 (100%) Progress towards Goal:: Met Street Light Mechanic Goals Goal #1: Patient knows HEP and to cont. ex's to maintain level of function at D/ C. Goal to be met by: 09/22/16 (100%) Progress towards goal: Met Goal #2: Score on Tinetti Assessment improved to 21/28. Goal to be met by: 09/22/16 (70%) Progress towards goal: Progressing Goal #3: Patient to amb. with AAD with good safety community distances. Goal to be met by: 09/22/16 (100%) Progress towards goal: Met Goal #4: Pt to report improved confidence in balance and safety with mobility. Goal to be met by: 09/22/16 (100%) Progress towards goal: Met Plan PLAN OF CARE EXPIRES ON:: 09/22/16 ORDER # VISITS AND/OR THROUGH DATE: 09/22/16 PLAN: Plan for Discharge (Discharge with HEP.)
--- NOTE | 2016-10-21 14:31 | RS.OPPTDC ---
Date of Discharge: 09/10/16 Date of Evaluation: 08/12/16 Number of Visits: 12 Treatment Diagnosis: Ataxia ,Gait abnormality, decreased balance Current Complaints/Gains: Patient reports being pleased with progress. Reports she has not fallen and she is no longer dragging her foot when walking. States she works on her HEP consistently. Reports increased mobility in the community. Also reports increased confidence with ambulation at home and in the community. Functional Outcome Measure Tinetti: 19 (19/28=32%) - G Codes & Severity Modifier G Codes & Modifier: Mobility goal CI. Mobility D/C CJ Source of G Code score: Tinetti Assessment Interventions - Exercise/Activities/Manual Therapy Exercises/Activities: NA Manual Therapy: NA HOME EXERCISE PROGRAM: Isometric hip add, SLR, alt hip flexion. Standing at kitchen counter for toe-ups, mini-squats, marching, and alt hip abd. - Objective Findings Observations,measurements,etc.: Bilateral LE strength 4 to 4+/5. Dynamic balance good (-). - Charges Total Direct Minutes: NA Total Treatment Time: NA Procedures billed for this date of service:: Na Assessment Assessment: Patient demonstrates good progress towards goals. She met all goals , with the exception for one regarding score on Tinetti Assessement. Even though her score did not change, she demonstrates improved base of support and improved static and dynamic balance. Short Term Goals Goal #1: Patient independent in basic HEP. Goal to be met by: 08/27/16 (100%) Progress towards Goal:: Met Goal #2: Pt to consistently demonstrate a good base of support with ambulation. Goal to be met by: 08/27/16 (100%) Progress towards Goal:: Met Goal #3: Dynamic standing balance improved to Fair +. Goal to be met by: 08/27/16 (100%) Progress towards Goal:: Met Goal #4: Bilateral hip strength 4/5 throughout. Goal to be met by: 08/27/16 (100%) Progress towards Goal:: Met Pump Servicer Helper Goals Goal #1: Patient knows HEP and to cont. ex's to maintain level of function at D/ C. Goal to be met by: 09/22/16 (100%) Progress towards goal: Met Goal #2: Score on Tinetti Assessment improved to 21/28. Goal to be met by: 09/22/16 (70%) Progress towards goal: Not Met Goal #3: Patient to amb. with AAD with good safety community distances. Goal to be met by: 09/22/16 (100%) Progress towards goal: Met Goal #4: Pt to report improved confidence in balance and safety with mobility. Goal to be met by: 09/22/16 (100%) Progress towards goal: Met Plan Reason for Discharge:: Maximum Potential Met
== END 2016-10-08 ==
PROVIDERS: ATTEND Psychiatry & Neurology Neurology
DX: R27.0 Ataxia, unspecified (principal)

== ENCOUNTER 2017-01-11 20:13 | Emergency (ER) ==
[2017-01-11 20:24] VITALS: BP 166/87; TEMP 98.2; BMI 23.5
[2017-01-11] MEDS ORDERED: SODIUM CHLORIDE 1,000 ML IV STA (20:27)
[2017-01-11] MEDS ORDERED: ASPIRIN CHEWABLE PO STA (20:27)
[2017-01-11 20:41] LABS: EOSINOPHILS # (AUTO) 0.2 K/ul (0.0-0.7); EOSINOPHILS % (AUTO) 4.5 % (0.0-7.0); HEMATOCRIT 34.7 % (37.0-47.0); HEMOGLOBIN 11.5 g/dl (12.0-16.0); IMMATURE GRANULOCYTE % (AUTO) 0.2 % (0.0-5.0); LYMPHOCYTES # (AUTO) 1.7 K/uL (0.60-3.4); LYMPHOCYTES % (AUTO) 42.9 (10.0-50.0); MEAN CORPUSCULAR HEMOGLOBIN 30.5 pg (27.0-31.0); MEAN CORPUSCULAR HGB CONC 33.1 (31.8-35.4); MONOCYTES # (AUTO) 0.5 K/uL (0.4-2.0); MONOCYTES % (AUTO) 13.4 (0-10); NEUTROPHILS # (AUTO) 1.5 K/ul (2.0-6.9); PLATELET COUNT 156 10^3/uL (140-440); RED BLOOD COUNT 3.77 10^6/ul (4.20-5.40); WHITE BLOOD COUNT 4.03 K/ul (4.6-10.2)
--- NOTE | 2017-01-11 21:03 | DI ---
EXAM: Chest one view. CLINICAL INDICATION: Chest pain. COMPARISON: 04/10/2014. FINDINGS: A single AP radiograph of the thorax is provided. The pulmonary parenchyma is clear and there is no pleural abnormality. The cardiomediastinal silhou ette and visualized bony structures are unchanged. IMPRESSION: No interval change, with no acute pulmonary abnormality.
[2017-01-11 21:07] LABS: ALBUMIN 3.4 g/dL (3.4-5.0); ALBUMIN/GLOBULIN RATIO 1.1; BILIRUBIN,TOTAL 0.18 mg/dL (0.00-1.20); BUN/CREATININE RATIO 46.05; CALCIUM 8.7 mg/dL (8.2-10.2); CREATININE 0.76 mg/dL (0.60-1.30); TOTAL PROTEIN 6.5 g/dL (5.8-8.1); TROPONIN I 0.01 ng/ml (0.0000-0.4000)
--- NOTE | 2017-01-11 21:41 | ED.PDOC ---
General ED Provider: Dr. CARMENCITA LIN Chief Complaint: Extremity Pain/Injury Stated Complaint: Patient is an 81 year old female who comes to the ER with a 2 day history of dull pain in left upper arm. She states that it is intermitent lasting few secs. Concerned because the same thing happened when she had her heart attack. Denies chest pain at present. Continues to take Imdur for angina. She has not seen Dr. Jules in many years. Time Seen by Physician: 21:39 Mode of Arrival: Walk-In Information Source: Patient, Family Exam Limitations: No limitations Primary Care Provider: ABRAHAM RODRÍGUEZ Nursing and Triage Documentation Reviewed and Agree: Yes Musculoskeletal Complaint Exam - Upper Extremity Complaint/Exam Location of Pain: Reports: Left, Arm Mechanism of Injury: Reports: No known trauma Onset/Duration: 4 days Symptoms Are: Still present Timing: Intermittent Episodes Lasting: Seconds Initial Severity: Moderate Current Severity: Mild Location: Reports: Diffuse Character: Reports: Aching Aggravating: Denies: Movement, Lifting, Flexion, Extension, Internal rotation, External rotation, Abduction Alleviating: Reports: None Related History: Reports: Similar episode (with prior [place] 25 year prior) DVT Risk Factors: Reports: None Septic Arthritis Risk Factors: Reports: None Related Surgical History: Reports: None Upper Extremity Picture: 1 - area of pain Differential Diagnoses: Strain, Sprain, Other (Angina Equivalent ) Review of Systems - Review Of Systems Constitutional: Reports: No symptoms Eyes: Reports: No symptoms Ears, Nose, Mouth, Throat: Reports: No symptoms Respiratory: Reports: No symptoms Cardiac: Reports: No symptoms GI: Reports: No symptoms : Reports: No symptoms Musculoskeletal: Reports: Joint pain (Left arm pain ) Skin: Reports: No symptoms Neurological: Reports: Anxiety Endocrine: Reports: No symptoms Hematologic/Lymphatic: Reports: No symptoms All Other Systems: Reviewed and Negative Past Medical History - Past Medical History Previously Healthy: Yes Endocrine: Reports: None Cardiovascular: Reports: [place], Hypertension Respiratory: Reports: None Hematological: Reports: None Gastrointestinal: Reports: GERD Genitourinary: Reports: None Neuro/Psych: Reports: Anxiety Musculoskeletal: Reports: Arthritis Cancer: Reports: None Last Menstrual Period: menopausal Other Pertinent Past Medical History: Essential Tremors. - Surgical History General Surgical History: Reports: Cholecystectomy - Family History Family History: Reports: None - Social History Smoking Status: Never smoker Hx Substance Use: No Alcohol Screening: None - Immunizations Tetanus Shot up to Date: Yes Physical Exam - Physical Exam Appearance: Well-appearing, No pain distress, Well-nourished Eyes: JEANNIE, EOMI, Conjunctiva clear ENT: Ears normal, Nose normal, Oropharynx normal Respiratory: Airway patent, Breath sounds clear, Breath sounds equal, Respirations nonlabored Cardiovascular: RRR, Pulses normal, No rub, No murmur GI/: Soft, Nontender, No masses, Bowel sounds normal, No Organomegaly Musculoskeletal: Normal strength, ROM intact, No edema, No calf tenderness Skin: Warm, Dry, Normal color Neurological: Sensation intact, Motor intact, Reflexes intact, Cranial nerves intact, Alert, Oriented Psychiatric: Affect appropriate, Mood appropriate Interpretation - Radiology Interpretation Radiology Interpretation By: ED Physician Radiology Results: Negative Exam Interpreted: Portable CXR - Drawer In Hand Rate: Normal Rhythm: Sinus Ectopy: None - EKG Interpretation Time of EKG #1: 20:33 Rate: Jaylen Rhythm: Sinus Ectopy: None [place]: NL ST Segment: Normal Interpretation: Sinus Bradycardia Re-Evaluation - Re-Evaluation Time of Re-Evaluation: 22:08 Status: Improved Vital Signs Stable: Yes (152/81) Pain Level: 0 Physician Notification - Case Discussed Physician Notified: Dr Rodríguez Time of Notification: 22:12 (Determine if Nuclear stress test can be done at [facility] tomorrow. He will call back in 15 mins) Physician Notified: Dr Rodírguez Time of Notification: 22:30 (ok to transfer to [facility] admit to Dr Rodríguez consult cardiology.) Critical Care Note - Critical Care Note Total Time (mins): 45 Course - Course Hematology/Chemistry: 01/11/17 20:40 01/11/17 20:40 Orders, Labs, Meds: Lab Review 01/11/17 20:40 WBC 4.03 L RBC 3.77 L Hgb 11.5 L Hct 34.7 L MCV 92.0 MCH 30.5 MCHC 33.1 RDW Coeff of Paulina 13.1 Plt Count 156 Immature Gran % (Auto) 0.2 Neut % (Auto) 38.0 Lymph % (Auto) 42.9 [place] % (Auto) 13.4 H Eos % (Auto) 4.5 Baso % (Auto) 1.0 Immature Gran # (Auto) 0.0 Neut # 1.5 L Lymph # 1.7 [place] # 0.5 Eos # 0.2 Baso # 0.0 Sodium 142 Potassium 4.0 Chloride 110 H Carbon Dioxide 22 L Anion Gap 14.0 BUN 35 H Creatinine 0.76 Estimated GFR (MDRD) 73.00 BUN/Creatinine Ratio 46.05 Glucose 90 Calcium 8.7 Total Bilirubin 0.18 AST 16 ALT 10 L Alkaline Phosphatase 81 Total Creatine Kinase 105 Troponin I 0.0100 B-Natriuretic Peptide 105 H Total Protein 6.5 Albumin 3.4 Globulin 3.1 Albumin/Globulin Ratio 1.10 Orders Category Date Time Status EKG-(ED ONLY) Stat CARDIO 01/11/17 20:27 Completed ED APPLY O2 .ONCE EMERGENCY 01/11/17 20:27 Active ED BILL CLERK APPLIED .ONCE EMERGENCY 01/11/17 20:27 Active ED IV/MEDIPORT/POWERPORT .ONCE EMERGENCY 01/11/17 20:27 Active B-TYPE NATRIURETIC PEPTIDE Stat LAB 01/11/17 20:40 Completed CBC W/ AUTO DIFF Stat LAB 01/11/17 20:40 Completed COMPREHENSIVE METABOLIC PANEL Stat LAB 01/11/17 20:40 Completed CREATINE KINASE Stat LAB 01/11/17 20:40 Completed TROPONIN I Stat LAB 01/11/17 20:40 Completed 0.9 % Sodium Chloride [Saline Flush] MEDS 01/11/17 20:27 Discontinued 1 syr IVF PRN PRN Acetaminophen [Tylenol] MEDS 01/11/17 22:09 Discontinued 1,000 mg PO ONCE STA Aspirin [Aspirin Chewable] MEDS 01/11/17 20:27 Discontinued 243 mg PO ONCE STA Nitroglycerin [Nitro-Dur 0.4 mg/Hr] MEDS 01/11/17 22:37 Discontinued 1 patch TD ONCE STA Nitroglycerin [Nitrostat] MEDS 01/11/17 21:55 Discontinued 0.4 mg SL ONCE STA Sodium Chloride 0.9% [Sodium Chloride] 1,000 ml MEDS 01/11/17 20:27 Discontinued IV 125 mls/hr CHEST, 1V AP ONLY Stat RADS 01/11/17 20:27 Completed Medications Discontinued Medications Generic Name Dose Route Start Last Admin Trade Name Freq PRN Reason Stop Dose Admin Acetaminophen 1,000 mg 01/11/17 22:09 01/11/17 22:13 Tylenol PO 01/11/17 22:10 1,000 mg ONCE STA Administration Aspirin 243 mg 01/11/17 20:27 01/11/17 20:49 Aspirin Chewable PO 01/11/17 20:28 243 mg ONCE STA Administration Sodium Chloride 1,000 mls @ 125 mls/hr 01/11/17 20:27 01/11/17 20:49 Sodium Chloride IV 01/12/17 04:26 125 mls/hr .Q8H STA Administration Nitroglycerin 0.4 mg 01/11/17 21:55 01/11/17 21:56 Nitrostat SL 01/11/17 21:56 0.4 mg ONCE STA Administration Nitroglycerin 1 patch 01/11/17 22:37 01/11/17 22:46 Nitro-Dur 0.4 Mg/Hr TD 01/11/17 22:38 1 patch ONCE STA Administration Sodium Chloride 1 syr 01/11/17 20:27 01/11/17 20:49 Saline Flush IVF 1 syr PRN PRN Administration To flush IV Vital Signs: Temp Pulse Resp BP Pulse Ox 01/11/17 20:15 98.2 F 64 20 166/87 H 96 Departure - Departure Time of Disposition: 22:44 Disposition: TSF SHORT-TRM HOSP Discharge Problem: Anginal equivalent Condition: Stable Pt referred to PMD for follow-up: No (Transfered ) Allergies/Adverse Reactions: Allergies No Known Allergies Allergy (Unverified 01/11/17 20:28) Home Medications: Ambulatory Orders Alprazolam [Xanax] 0.5 mg PO DAILY PRN 01/11/17 Aspirin [Aspirin EC] 81 mg PO DAILYWM 01/11/17 Bimatoprost Opth [Lumigan] 1 drop OP DAILY 01/11/17 Carboxymethylcell/Glycerin/Pf [Refresh Optive Sensitive Drops] 1 drop EACHEYE DAILY 01/11/17 Cholecalciferol (Vitamin D3) [Vitamin D3] 2,000 unit PO DAILY 01/11/17 Citalopram Hydrobromide [Celexa] 20 mg PO DAILY 01/11/17 Isosorbide Mononitrate [Imdur] 30 mg PO DAILY 01/11/17 Lisinopril 10 mg PO DAILY 01/11/17 Metoprolol Succinate [Toprol Xl] 12.5 mg PO DAILY 01/11/17 Naproxen Sodium [Aleve] 220 mg PO BID PRN 01/11/17 Omeprazole Magnesium [Prilosec Otc] 40 mg PO DAILY 01/11/17 Primidone [Mysoline] 250 mg PO DAILY 01/11/17 Topiramate [Topamax] 75 mg PO BID 01/11/17
[2017-01-11] MEDS ORDERED: NITROSTAT SL STA (21:55)
[2017-01-11] MEDS ORDERED: TYLENOL PO STA (22:09)
[2017-01-11] MEDS ORDERED: NITRO-DUR 0.4 MG/HR TD STA (22:37)
== END 2017-01-11 23:03 | disposition short-term general hospital (02) ==
LOC: ED 20:13
DX: I10 Essential (primary) hypertension (principal); I20.9 Angina pectoris, unspecified; I25.2 Old myocardial infarction; M79.622 Pain in left upper arm; Z79.899 Other long term (current) drug therapy
CPT/HCPCS: 36415; 80053; 82550; 83880; 84484; 85025; 93005; 93010; 96360; 96361; 99285

== ENCOUNTER 2017-11-13 12:36 | Outpatient (CLI) | payer OTHER ==
--- NOTE | 2017-11-16 08:40 | MAMMO ---
EXAM: Digital screening mammogram with 3-D tomosynthesis HISTORY: Screening mammogram COMPARISON: Mammogram 08/0401/18/2013 FINDINGS: Bilateral CC and MLO views of the breasts were performed digitally and demonstrate scatter ed fibroglandular breast density. Bilateral benign calcifications are present. There is a 0.3 cm nod ule in the right inferior retroareolar space on image 18 of the CC 3-D images and image 27 of the sag ittal images. No additional abnormality is identified. IMPRESSION: Right breast retroareolar 0.3 cm mass RECOMMENDATION: Diagnostic right breast mammogram with potential ultrasound. BIRADS category 0: Needs further evaluation.
== END 2017-11-13 12:37 | disposition home or self-care (01) ==
LOC: RAD 12:36
PROVIDERS: ATTEND Family Medicine
DX: Z12.31 Encounter for screening mammogram for malignant neoplasm of breast (principal)
CPT/HCPCS: 77067

== ENCOUNTER 2017-11-18 10:16 | Outpatient (CLI) | payer OTHER ==
--- NOTE | 2017-11-18 12:36 | US ---
PRELIMINARY EXAM: Digital right diagnostic mammogram with tomosynthesis and right breast ultrasound HISTORY: Right retroareolar soft tissue mass COMPARISON: Screening mammogram 11/13/2017 FINDINGS: MLO and CC views of the breast were performed digitally and demonstrate unchanged breast d ensity. Increased soft tissue/mass in the right retroareolar space with calcifications is unchanged f rom prior examination. 3-D tomosynthesis demonstrates soft tissue in this region with no discrete ma ss. No new masses identified. Dedicated ultrasound of the right retroareolar region demonstrates no focal soft tissue abnormality o r mass with increased echogenicity of the parenchyma. There are few distended ducts with no internal debris or nodule identified. IMPRESSION: Nonspecific right retroareolar breast mass/soft tissue. RECOMMENDATION: Follow up right diagnostic mammogram in 6 months. BIRADS category III: Probable benign findings
== END 2017-11-18 10:17 | disposition home or self-care (01) ==
LOC: RAD 10:16
PROVIDERS: ATTEND Family Medicine
DX: R92.8 Other abnormal and inconclusive findings on diagnostic imaging of breast (principal)

== ENCOUNTER 2017-12-07 10:00 | Outpatient (RCR) ==
--- NOTE | 2017-12-04 16:14 | RS.OPPTEV2 ---
Date of Note: 12/04/17 Visit #: 1 Date of Evaluation: 12/04/17 Payer Source: MEDICARE Surgery Performed?: No Treatment Diagnosis: ataxia History of Condition/Mechanism of Injury:: pt with long history of familial tremor, pt states that it has been gettng worse lately. pt states it has been getting harder to get out of chair and walking. Prior Level of Function.....Patient was independent with: ADL's, Self Care, Ambulation/Mobility, Community Integration/Access Functional Limitations: ADL's, Carrying, Standing, Bending, Squatting, Ambulation, Community Access/Integration Current Subjective/complaints:: pt states she has been having increased tremor lately which has been causing increased trouble walking. Treatment Side (optional): N/A *Precautions: fall precautions Medical History Medical History: Hypertension, Arthritis Medical History Comments:: Familial Tremors Surgical History: Lumbar Spine Smoking Status: Never smoker Hx Home Medications: Zestril, prilosec, Toprol, Topamax, Imdur, miralax, linzess , aspirin, mysoline, celexal, vitamin D3, Patient's Goals: be able to walk better and be stronger. Pain Assessment - Pain Description Pain Location: shld and knee pain occasionally Pain Description: Aching Pain Description: aching Current Pain Intensity: 2/10 Functional Outcome Measure Tinetti: 17 (39%) - G Codes & Severity Modifier G Codes & Modifier: mobility walking and moving around: current CJ. mobility walking and moving around: goal CI Source of G Code score: tinetti Observation - Observation Inspection: pt with continuous tremor involving BUE, neck, mouth. Posture: Forward Head, Rounded Shoulders, Increased Thoracic Kyphosis, Decreased Lumbar Lordosis Handedness: Right Gait - Gait Pattern General Gait Pattern Observation: Ataxic Gait (pt with ataxic gait pattern with narrow DONALDO, decreased step length and slight forward flexed posture) Gait Comments: pt took 4 attempts to stand from chair. Instructed pt on moving COG forward to assist with standing. General Muscle Strength: RUE shld flex 4-/5, elbow flex/ext 4/5. LUE shld flex 3+/5, elbow flex/ext 4-/5. decreased military pilot strength BUE. BLE hip flex 4-/5, knee flex /ext 4/5, ankle DF/PF 4/5 Palpation Palpation Findings: Tenderness Comments:: tenderness noted in cervical spine Sensation - Sensation Right Upper Extremity: Impaired (pt reports n/t B 5th fingers and lat side of hand) Left Upper Extremity: Impaired Right Lower Extremity: Intact/Normal Left Lower Extremity: Intact/Normal Balance - Sitting Balance Static Sitting Balance: Good Dynamic Sitting Balance: Good - Standing Balance Static Standing Balance: Fair Dynamic Standing Balance: Poor - Comments Balance Assessment Comments: tinetti score Interventions - Exercise/Activities/Manual Therapy Exercises/Activities: pt performed BLE isometric hip add, resisted hip abd with red t band, QS, hip abd/add x 5 reps Total minutes of Exercise: 16 Manual Therapy: NA HOME EXERCISE PROGRAM: pt given written HEP including isometric hip add, resisted hip abd with red tband, hip abd/add, QS - Charges Timed Code Treatment Minutes: 51 Total Treatment Time: 61 Procedures billed for this date of service:: eval med, ex EVALUATION COMPLEXITY LEVEL EVALUATION COMPLEXITY LEVEL: HISTORY: Medium (OA, HTN, ataxia, tremor), EXAM OF BODY SYSTEMS: Medium (balance, gait, transfers, strength), CLINICAL PRESENTATION : Medium (evolving), CLINICAL DECISION MAKING: Medium Assessment Assessment: pt presents with ataxic gait due to continuous familial tremor with decreased strength, balance. pt with high risk of fall per tinetti score. Patient Education: Home Exercise Program, Education of Plan of Care Rehab Potential: Good Short Term Goals Goal #1: Patient independent with initial HEP Goal to be met by: 12/25/17 (100%) Goal #2: pt able to stand from chair with BUE support with 1 attempt Goal to be met by: 12/25/17 (100%) Goal #3: Improve tinetti score to Goal to be met by: 12/25/17 (100%) Goal #4: Improve BLE strength 4/5 Goal to be met by: 12/25/17 (100%) Group Home Goals Goal #1: pt amb community distances with AAD with no LOB and improved sequencing Goal to be met by: 01/15/18 Goal #2: Improve dyn stand balance as noted by tinetti score Goal to be met by: 01/15/18 Goal #3: pt with no reports of pain with mobility Goal to be met by: 01/15/18 Goal #4: Improved BLE strength to 4 to 4+/5 Goal to be met by: 01/15/18 Plan - Treatment to be Provided Procedures: Therapeutic Exercises, Therapeutic Activity, Gait Training, Neuromuscular Rehab, Patient Education Modalities: No Modalities - Treatment Plan Frequency: 2-3 X week Duration: 6 weeks ORDER # VISITS AND/OR THROUGH DATE: 01/15/18 - Treatment Code (1) Ataxia Code(s): R27.0 - ATAXIA, UNSPECIFIED (2) Continuous tremor Code(s): G25.2 - OTHER SPECIFIED FORMS OF TREMOR (3) Impaired functional mobility, balance, gait, and endurance Code(s): Z74.09 - OTHER REDUCED MOBILITY (4) Weakness of both lower extremities Code(s): R29.898 - OT SYMPTOMS AND SIGNS INVOLVING THE MUSCULOSKELETAL SYSTEM
--- NOTE | 2017-12-07 15:14 | RS.OPPTDN ---
Subjective Date of Note: 12/07/17 Visit #: 2 Date of Evaluation: 12/04/17 Payer Source: MEDICARE Treatment Diagnosis: ataxia Current Subjective/complaints:: Patient reports difficulty with sit to stand from chair and with balance at times. Reports she is feeling stronger since starting exercises. *Precautions: fall precautions Interventions - Exercise/Activities/Manual Therapy Exercises/Activities: Assisted HS and SKTC bilaterally. Isometric hip add. Resisted hip abd and ankle df, both with green theraband. Hip abd/add and SLR. 3# for alt hip flexion. All 2s/10reps each. In sitting, shoulder flexion and diagonals while holding small ball. NEURO: Practed sit to/from stand. Standing toe-ups, marching, and mini-squats while holding therapist hands for balance. In standing overhead flexion and diagonals while holding ball. Manual nudges forward, backward, and laterally with patient maintaining balance. Total minutes of Exercise: EX 29mins, NEURO 12mins Manual Therapy: NA HOME EXERCISE PROGRAM: pt given written HEP including isometric hip add, resisted hip abd with red tband, hip abd/add, QS - Charges Timed Code Treatment Minutes: 41mins Total Treatment Time: 44mins Procedures billed for this date of service:: EX2, NEURO Assessment: Patient motivated to progress with strengthening and balance work. Patient Education: Home Exercise Program, Home Safety, Activity Modification Patient demonstrates compliance with HEP?: Yes Short Term Goals Goal #1: Patient independent with initial HEP Goal to be met by: 12/25/17 (100%) Progress towards Goal:: Progressing Goal #2: pt able to stand from chair with BUE support with 1 attempt Goal to be met by: 12/25/17 (100%) Progress towards Goal:: Progressing Goal #3: Improve tinetti score to 19/28 Goal to be met by: 12/25/17 (100%) Goal #4: Improve BLE strength 4/5 Goal to be met by: 12/25/17 (100%) Telecommunications Repairer Goals Goal #1: pt amb community distances with AAD with no LOB and improved sequencing Goal to be met by: 01/15/18 Goal #2: Improve dyn stand balance as noted by tinetti score 23/28 Goal to be met by: 01/15/18 Goal #3: pt with no reports of pain with mobility Goal to be met by: 01/15/18 Goal #4: Improved BLE strength to 4 to 4+/5 Goal to be met by: 01/15/18 Plan PLAN OF CARE EXPIRES ON:: 01/15/18 ORDER # VISITS AND/OR THROUGH DATE: 01/15/18 PLAN: Progress with strengthening and balance activities to increase patients safety and functional activity level.
== END 2017-12-08 23:59 ==
PROVIDERS: ATTEND Psychiatry & Neurology Neurology
DX: R27.0 Ataxia, unspecified (principal); G25.2 Other specified forms of tremor; R29.898 Other symptoms and signs involving the musculoskeletal system; Z74.09 Other reduced mobility

== ENCOUNTER 2017-12-18 13:00 | Outpatient (RCR) ==
--- NOTE | 2017-12-09 14:11 | RS.OPPTDN ---
Subjective Date of Note: 12/09/17 Visit #: 3 Date of Evaluation: 12/04/17 Payer Source: MEDICARE Treatment Diagnosis: ataxia Current Subjective/complaints:: Pleased with her progress,she demos to this MANAGER [employer] how her sit to stand transfers have improved. *Precautions: fall precautions Interventions - Exercise/Activities/Manual Therapy Exercises/Activities: 45 mins. total for both LE strengthening including 3/15 leg press @ 75# for both ,and single leg press,2/10 each with 30 #.Hip abd/ adduction using yellow theraband,3/15 reps also.Reviewed safety precautions when doing HEP in bed ,sitting , (or standing if she feels safe). Total minutes of Exercise: 45 Manual Therapy: NA Total minutes of Manual Therapy: 0 HOME EXERCISE PROGRAM: pt given written HEP including isometric hip add, resisted hip abd with red tband, hip abd/add, QS - Charges Timed Code Treatment Minutes: 45 Total Treatment Time: 50 Procedures billed for this date of service:: ex 3 Assessment: Patient tolerates resistive exercises well today.she reports fatigue tyesha ,no pain in LE's.She does require cues to control speed of exercises ,especially the eccentric motions. Patient Education: Education of diagnosis, Body/Joint mechanics, Home Exercise Program, Home Safety, Activity Modification, Education of Plan of Care Patient demonstrates compliance with HEP?: Yes Short Term Goals Goal #1: Patient independent with initial HEP Goal to be met by: 12/25/17 (100%) Progress towards Goal:: Progressing Goal #2: pt able to stand from chair with BUE support with 1 attempt Goal to be met by: 12/25/17 Progress towards Goal:: Partially Met Goal #3: Improve tinetti score to 19/28 Goal to be met by: 12/25/17 (100%) Goal #4: Improve BLE strength 4/5 Goal to be met by: 12/25/17 (100%) Progress towards Goal:: Progressing Residential Goals Goal #1: pt amb community distances with AAD with no LOB and improved sequencing Goal to be met by: 01/15/18 Goal #2: Improve dyn stand balance as noted by tinetti score /28 Goal to be met by: 01/15/18 Goal #3: pt with no reports of pain with mobility Goal to be met by: 01/15/18 Goal #4: Improved BLE strength to 4 to 4+/5 Goal to be met by: 01/15/18 Plan PLAN OF CARE EXPIRES ON:: 01/15/18 ORDER # VISITS AND/OR THROUGH DATE: 01/15/18 PLAN: Continue PT to increase LE strength for safer transfers and gait.
--- NOTE | 2017-12-16 15:03 | RS.OPPTDN ---
Subjective Date of Note: 12/16/17 Visit #: 4 Date of Evaluation: 12/04/17 Payer Source: MEDICARE Treatment Diagnosis: ataxia Current Subjective/complaints:: Patient reports she is feeling stronger and she is able to consistently perform sit to stand from chair without difficulty. *Precautions: fall precautions Interventions - Exercise/Activities/Manual Therapy Exercises/Activities: Mat exercise of isometric hip add and isometric ankle inversion with ball. SLR and hip abd. Alt hip flexion and SAQ with 3# to each LE. Green theraband for hip abd, hip add, and ankle df. Isometric hip flexion. In standing, overhead reaching while holding ball. At hand rail, marching, toe- ups, mini-squats, and alt hip abduction. Holding hands with patient for toe-ups and alt hip abd. Then stepping over objects and up and down stepper board with HOUSEKEEPER. Leg press with 60#. Ended with assist onto stationary bike for forward and retro revolutions. Total minutes of Exercise: EX 30mins, NEURO 12mins Manual Therapy: NA HOME EXERCISE PROGRAM: pt given written HEP including isometric hip add, resisted hip abd with red tband, hip abd/add, QS. Standing toe-ups, mini-squats , hip abd, and marching - Charges Timed Code Treatment Minutes: 42mins Total Treatment Time: 45mins Procedures billed for this date of service:: EX2, NEURO Assessment: Patient reports improvement in strength and with sit to stand. Patient Education: Body/Joint mechanics, Home Exercise Program, Home Safety, Activity Modification Comments: Patient given copy of standing exercises. Patient demonstrates compliance with HEP?: Yes Short Term Goals Goal #1: Patient independent with initial HEP Goal to be met by: 12/25/17 (100%) Progress towards Goal:: Partially Met Goal #2: pt able to stand from chair with BUE support with 1 attempt Goal to be met by: 12/25/17 Progress towards Goal:: Met Goal #3: Improve tinetti score to 19/28 Goal to be met by: 12/25/17 (100%) Goal #4: Improve BLE strength 4/5 Goal to be met by: 12/25/17 (100%) Progress towards Goal:: Progressing Customer Success Intern Goals Goal #1: pt amb community distances with AAD with no LOB and improved sequencing Goal to be met by: 01/15/18 Progress towards goal: Progressing Goal #2: Improve dyn stand balance as noted by tinetti score Goal to be met by: 01/15/18 Goal #3: pt with no reports of pain with mobility Goal to be met by: 01/15/18 Goal #4: Improved BLE strength to 4 to 4+/5 Goal to be met by: 01/15/18 Plan PLAN OF CARE EXPIRES ON:: 01/15/18 ORDER # VISITS AND/OR THROUGH DATE: 01/15/18 PLAN: Progress exercise and balance activity to increase safety with functional activities.
--- NOTE | 2017-12-18 15:06 | RS.OPPTDN ---
Subjective Date of Note: 12/18/17 Visit #: 5 Date of Evaluation: 12/04/17 Payer Source: MEDICARE Treatment Diagnosis: ataxia Current Subjective/complaints:: Patient reports she feels she can continue HEP and stop therapy at this time. States she is consistently able to perform sit to stand without difficulty. Also states exercise has helped with pain, as she only has discomfort when she first gets out of bed and resolves with ambulation. *Precautions: fall precautions Interventions - Exercise/Activities/Manual Therapy Exercises/Activities: Mat exercise of isometric hip add and isometric ankle inversion with ball. SLR and hip abd. Alt hip flexion and SAQ with 3# to each LE. Green theraband for hip abd, hip add, and ankle df. Isometric hip flexion. In sitting, reaching overhead diagonally and horizontally. In standing, overhead reaching while holding ball. At hand rail, marching, toe-ups, mini- squats, and alt hip abduction. Holding hands with patient for toe-ups and alt hip abd. Then TRY ON BASTER for unilateral standing. Leg press with 60#. Ended with assist onto stationary bike for forward and retro revolutions. Total minutes of Exercise: EX 30mins, NERUO 11mins Manual Therapy: NA HOME EXERCISE PROGRAM: pt given written HEP including isometric hip add, resisted hip abd with red tband, hip abd/add, QS. Standing toe-ups, mini-squats , hip abd, and marching - Objective Findings Observations,measurements,etc.: Patient demos improvement in Tinetti Balance and Gait Assessment tool to or 32% (was or 39% on Eval) - Charges Timed Code Treatment Minutes: 41mins Total Treatment Time: 46mins Procedures billed for this date of service:: EX2, NEURO Assessment: Patient has reported improvement in strength and ability to perform daily activities. She reports consistently being able to perform sit to stand without difficulty. Short Term Goals Goal #1: Patient independent with initial HEP Goal to be met by: 12/25/17 (100%) Progress towards Goal:: Met Goal #2: pt able to stand from chair with BUE support with 1 attempt Goal to be met by: 12/25/17 Progress towards Goal:: Met Goal #3: Improve tinetti score to Goal to be met by: 12/25/17 (100%) Progress towards Goal:: Met Goal #4: Improve BLE strength 4/5 Goal to be met by: 12/25/17 (100%) Progress towards Goal:: Progressing Laboratory Supervisor Goals Goal #1: pt amb community distances with AAD with no LOB and improved sequencing Goal to be met by: 01/15/18 Progress towards goal: Progressing Goal #2: Improve dyn stand balance as noted by tinetti score Goal to be met by: 01/15/18 Goal #3: pt with no reports of pain with mobility Goal to be met by: 01/15/18 Progress towards goal: Progressing Goal #4: Improved BLE strength to 4 to 4+/5 Goal to be met by: 01/15/18 Plan PLAN OF CARE EXPIRES ON:: 01/15/18 ORDER # VISITS AND/OR THROUGH DATE: 01/15/18 PLAN: Discharge with HEP at patient request due to good progress.
--- NOTE | 2017-12-29 15:54 | RS.OPPTDC ---
Date of Discharge: 12/18/17 Date of Evaluation: 12/04/17 Number of Visits: 5 Treatment Diagnosis: ataxia Current Level of Function: pt has met 3 of 8 goals. pt is independent with HEP. pt is able to transfer sit to/from stand without difficulty. Tinetti assessment improved from to . Current Complaints/Gains: Patient reports improved balance and strength since starting therapy. pt states she is ready for dc and feels she can continue HEP on her own. Pain Assessment - Pain Description Pain Description: Aching Functional Outcome Measure Tinetti: 19 - G Codes & Severity Modifier G Codes & Modifier: mobility: walking and moving around goal CI. mobility: walking and moving around current CJ Source of G Code score: tinetti balance assessment Observation - Observation Posture: Forward Head, Rounded Shoulders Handedness: Right Gait - Gait Pattern Gait Comments: pt amb without AD, no new falls reported. General Range of Motion: WFL's Muscle Strength: WFL's Interventions - Exercise/Activities/Manual Therapy Exercises/Activities: n/a Manual Therapy: NA HOME EXERCISE PROGRAM: pt given written HEP including isometric hip add, resisted hip abd with red tband, hip abd/add, QS. Standing toe-ups, mini-squats , hip abd, and marching - Charges Timed Code Treatment Minutes: n/a Total Treatment Time: n/a Procedures billed for this date of service:: n/a Assessment Assessment: pt has met 3 of 8 goals. Independent with HEP. pt request dc due to good progress. 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
== END 2018-01-08 23:59 ==
PROVIDERS: ATTEND Psychiatry & Neurology Neurology
DX: R27.0 Ataxia, unspecified (principal); G25.2 Other specified forms of tremor; Z74.09 Other reduced mobility; R29.898 Other symptoms and signs involving the musculoskeletal system

== ENCOUNTER 2018-01-05 09:40 | Outpatient (CLI) | payer OTHER ==
--- NOTE | 2018-01-05 10:37 | DI ---
EXAM: Two views of the chest. History: Cough. Comparison: Chest radiograph 01/11/2017 Findings: Heart is mildly enlarged. No focal consolidation. No appreciable pleural fluid and no pn eumothorax. No acute osseous abnormalities. Atherosclerotic vascular calcifications. Impression: Mild cardiomegaly without acute disease in the chest
== END 2018-01-05 09:41 | disposition home or self-care (01) ==
LOC: RAD 09:40
PROVIDERS: ATTEND Family Medicine
DX: R05 Cough (principal)

== ENCOUNTER 2018-04-22 10:00 | Outpatient (RCR) | END 2018-05-10 23:59 | PROVIDERS: ATTEND Family Medicine | DX: M47.9 Spondylosis, unspecified (principal); M19.90 Unspecified osteoarthritis, unspecified site; M54.2 Cervicalgia; G89.29 Other chronic pain; G20 Parkinson's disease; M54.5 Low back pain; M54.16 Radiculopathy, lumbar region ==

== ENCOUNTER 2018-05-24 08:56 | Outpatient (CLI) | payer OTHER ==
--- NOTE | 2018-05-24 09:31 | MAMMO ---
EXAM: Right digital diagnostic mammogram (2-D and 3-D) History: Follow-up right breast mass. Comparison: Right diagnostic mammogram 11/18/2017 Findings: MLO and CC views of the right breast demonstrate scattered fibroglandular breast parenchym a. Spot compression views of the right breast were also obtained. Tomosynthesis was performed and C AD was utilized by the radiologist. Stable benign right breast calcifications. No dominant masses o r architectural distortions Impression: Benign right mammogram. Recommend return to routine screening mammography schedule. BIRADS 2, benign
== END 2018-05-24 08:57 | disposition home or self-care (01) ==
LOC: RAD 08:56
PROVIDERS: ATTEND Family Medicine
DX: R92.2 Inconclusive mammogram (principal)